=== PATIENT | female | born 1965 | race Caucasian/White ===

== ENCOUNTER 2019-11-07 21:23 | Emergency (ER) | payer BC ==
[~2019-11-07] VITALS: Ht 165.1 cm; Wt 54.9 kg
--- NOTE | 2019-11-07 21:45 | NUR ---
BIBSELF W/ FAMILY. TO ER BED 9. AAOX4. NO RESP DISTRESS NOTED. AMBULATORY. C/O BLACK SOFT STOOL WHICH STARTED ON TUESDAY. PER PT REPORT, PT STARTED TO HAVE DIARRHEA ON TUESDAY, HAVIING MULTIPLE EPISODES. ON TUESDAY, PT STARTED HAVING BLACK SOFT STOOL W/ MULTIPLE EPISODE UP TO KNOW. PT REPORTS TAKING IBUPROPHEN 2-3 TABS OF 200MG EVERY 4 HRS LAST TAKEN 3 HRS AGO. PT HAS BEEN FEELING WEAK. LOSS OF APPETITE. PT DENIES VOMMITING BUT SHE IS NAUSEOUS. AWAITING MD FOR EVAL.
--- NOTE | 2019-11-07 21:50 | NUR ---
PT IS ALSO C/O EPIGASTRIC PAIN 5/10, AND THROBBING HEADACHE
[2019-11-07] MEDS ORDERED: diphenhydrAMINE HCL 50 MG/ML VIAL ONE (22:07)
[2019-11-07] MEDS ORDERED: KETOROLAC TROMETHAMINE 15 MG/ML VIAL ONE (22:07)
[2019-11-07] MEDS ORDERED: METOCLOPRAMIDE HCL 10 MG/2 ML VIAL ONE (22:07)
[2019-11-07 22:18] LABS: BASOPHILS % (AUTO) 0.9 % (0.0-2.0); EOSINOPHILS % (AUTO) 1.4 % (0.0-6.0); HEMATOCRIT 33 % (33-45); HEMOGLOBIN 10.9 g/dL (11.5-14.8); LYMPHOCYTES # (AUTO) 0.6 /CMM (0.8-4.8); LYMPHOCYTES % (AUTO) 18.5 % (20.0-44.0); MEAN CORPUSCULAR HGB CONC 33 g/dl (31.0-36.0); MEAN CORPUSCULAR VOLUME 87 fL (82-100); MONOCYTES # (AUTO) 0.4 /CMM (0.1-1.30); MONOCYTES % (AUTO) 12.6 % (2.0-12.0); NEUTROPHILS # (AUTO) 2.3 /CMM (1.8-8.9); NEUTROPHILS % (AUTO) 66.6 % (43.0-81.0); PLATELET COUNT (AUTO) 193 /CMM (150-450); WHITE BLOOD COUNT (AUTO) 3.5 K/uL (4.3-11.0)
--- NOTE | 2019-11-07 22:23 | NUR ---
IV LINE ON R AC 20 G. BLOOD DRAWN AND GIVEN TO ZIGZAG MACHINE OPERATOR AT BEDSIDE. XRAY AT BEDSIDE WELL
[2019-11-07 22:30] LABS: CALCIUM, SERUM 8.6 mg/dL (8.5-10.1); CREATININE 0.7 mg/dL (0.6-1.3)
[2019-11-07] MEDS ORDERED: diphenhydrAMINE HCL 50 MG/ML VIAL IV ONE (22:30)
[2019-11-07] MEDS ORDERED: METOCLOPRAMIDE HCL 10 MG/2 ML VIAL IV ONE (22:30)
[2019-11-07] MEDS ORDERED: KETOROLAC TROMETHAMINE INJ 30 MG/ML VIAL IV ONE (22:30)
[2019-11-07] MEDS ORDERED: IV NS 0.9% 1,000 ML BAG IV ONE ×2 (22:30→23:30)
--- NOTE | 2019-11-07 23:09 | NUR ---
BP NOTED AT 88/54. MD MADE AWARE. RECEIVED VERBAL ORDER TO GIVE ANOTHER LITER OF NS VIA IV. ORDER NOTED AND CARRIED OUT
--- NOTE | 2019-11-07 23:10 | NUR ---
EKG DONE BY EMT AT BEDSIDE
[2019-11-07] MEDS ORDERED: POTASSIUM CHLORIDE 20 MEQ TAB.PRT.SR PO ONE ×2 (23:15→23:30)
[2019-11-08 00:09] VITALS: BP 90/52
--- NOTE | 2019-11-08 00:09 | NUR ---
Patient discharged to home in stable condition. Written and verbal after care instructions given. Patient verbalizes understanding of instruction.IV removed. Catheter intact and site benign. Pressure and 4x4 applied to site. No bleeding noted. Pt ambulatory with a steady gait
--- NOTE | 2019-11-08 00:10 | NUR ---
MD IS AWARE OF DC BP OF 90/52. MD APPROVED TO CONTINUE WITH DISCHARGE
== END 2019-11-08 00:18 | disposition home or self-care (01) ==
LOC: ER 21:37
DX: K52.9 Noninfective gastroenteritis and colitis, unspecified (principal); E87.6 Hypokalemia; E86.0 Dehydration
CPT/HCPCS: 36415; 71046; 80048; 85025; 93005; 96361; 96374; 96375; 99284; J1200; J1885; J2765; J7030 ×2